=== PATIENT | female | born 1990 | race Caucasian/White ===

== ENCOUNTER 2018-03-07 11:49 | Emergency (ER) | payer OTHER ==
[2018-03-07] MEDS: ONDANSETRON (ODT) 4 MG TAB ODT (13:14)
[2018-03-07] MEDS: LIDOCAINE/MYLANTA 40 ML BTL PO (13:32)
== END 2018-03-07 14:42 | disposition home or self-care (01) ==
LOC: FTE 11:49
DX: R19.7 Diarrhea, unspecified (principal); R50.9 Fever, unspecified
CPT/HCPCS: 99283; Z7502